=== PATIENT | female | born 1960 | race Caucasian/White ===

== ENCOUNTER 2018-06-20 18:06 | Emergency (ER) | payer MEDICARE, OTHER ==
[~2018-06-20] VITALS: Ht 167.6 cm; Wt 64.5 kg
[2018-06-20] MEDS ORDERED: HYDR-3110 PO (18:20)
[2018-06-20] MEDS ORDERED: NIFE10 PO (18:20)
[2018-06-20] MEDS ORDERED: HYDR10TA31 PO (18:20)
[2018-06-20] MEDS ORDERED: INSNOV SQ (18:20)
[2018-06-20] MEDS ORDERED: SEVE800 PO (18:20)
[2018-06-20] MEDS ORDERED: INSLAN SQ (18:20)
[2018-06-20] MEDS ORDERED: ACETAMINOPHEN 500 MG TABLET PO ONE (19:45)
[2018-06-20 20:00] VITALS: BP 192/78
== END 2018-06-20 20:32 | disposition home or self-care (01) ==
LOC: EMS 18:07
DX: S83.91XA Sprain of unspecified site of right knee, initial encounter (principal); I13.0 Hypertensive heart and chronic kidney disease with heart failure and stage 1 through stage 4 chronic kidney disease, or unspecified chronic kidney disease; I50.9 Heart failure, unspecified; E11.22 Type 2 diabetes mellitus with diabetic chronic kidney disease; N18.9 Chronic kidney disease, unspecified; Z79.4 Long term (current) use of insulin; Z88.6 Allergy status to analgesic agent; Z88.5 Allergy status to narcotic agent; Z88.8 Allergy status to other drugs, medicaments and biological substances; W19.XXXA Unspecified fall, initial encounter; Y93.01 Activity, walking, marching and hiking; Y92.89 Other specified places as the place of occurrence of the external cause; Y99.8 Other external cause status
CPT/HCPCS: 29530; 99284